=== PATIENT | male | born 1980 | race Caucasian/White ===

== ENCOUNTER 2018-05-17 14:13 | Emergency (ER) | payer OTHER ==
--- NOTE | 2018-05-17 14:47 | EDPHY ---
General Time Seen by Provider: 05/17/18 14:41 Narrative: CHIEF COMPLAINT: "Crushed my hand" HISTORY OF PRESENT ILLNESS: Patient presents with complaints of left hand and wrist pain status post crush injury. He says he was moving a couch around 10:[address] accidentally crushed his left hand between a dumpster in the couch. This was there for just a "couple of seconds." He was able to pull his hand out. He has significant pain in the hand rated at 10/10. Radiates into the forearm. No numbness, tingling or weakness. No injury elsewhere. No laceration or puncture. Unable to bear weight left upper extremity due to the pain. Right- hand dominant. This is reportedly a work related injury. DOMINANT EXTREMITY: Right-hand dominant ESTABLISHED ORTHOPEDIST: None REVIEW OF SYSTEMS: Ten systems reviewed and are negative unless otherwise noted in the HPI PAST MEDICAL HISTORY: Arthritis, right hand fracture PAST SURGICAL HISTORY: Cyst excision SOCIAL HISTORY: Daily smoker. Lives and works here locally. FAMILY HISTORY: Noncontributory EXAMINATION General Appearance: Alert, no distress. Pacing in the room. Cardiovascular: Symmetric radial pulses 2+. There is brisk cap refill in the fingers left hand. Good signs of perfusion left hand. Neurological: A&O, sensory symmetric, interossei strength symmetric Skin: Grossly intact. Warm and dry. Multiple tattoos. There is no puncture laceration about the left hand. Extremities: Minimal edema to the left hand. Tenderness to palpation of the left hand involving the metacarpals, proximal phalanges of all fingers, and carpals excluding the anatomic snuffbox. Range of motion is difficult to test due to pain. He does retain strength of the interossei. All compartments of left upper extremity are soft and without edema or any signs of compartment syndrome. Psychiatric: Mood and affect normal DIFFERENTIAL DIAGNOSES: Including but not limited to sprain, strain, crush injury, fracture, dislocation MDM: 2:40 p.m. Crush injury to left hand and wrist earlier this morning, 4 hr ago. He is neuro intact distally with good signs of perfusion of the fingers. X-ray of the hand is pending. 2:50 p.m. X-ray as read by me, the radiologist, reveals no acute findings. I have ordered Percocet pain medication for patient. I will place him in a Velcro thumb spica. 3:00 p.m. X-ray has been read as negative by radiologist for acute findings. We discussed Velcro thumb spica, ice, elevation ibuprofen. Short course of pain medication. A disc we provided as he will need to follow up with his worker's compensation [facility] and potentially hand surgeon if his pain is not improved. We discussed the possibility of scaphoid injury, thus the splint. He will be discharged home stable condition. SUPERVISION: This patient was independently evaluated without direct involvement of or examination by the attending physician. ED Precautions: Worsening pain. Erythema, edema, cyanosis, pallor, paresthesia or anesthesia. - Diagnostics Imaging Results: Imaging Impressions Hand X-Ray 05/17/18 14:23 Impression: Nothing acute identified. - History Smoking Status: Current every day smoker - Objective Vital Signs: Initial Vital Signs Temperature (C) 97.9 F 05/17/18 14:19 Heart Rate 80 05/17/18 14:19 Respiratory Rate 16 05/17/18 14:19 Blood Pressure 117/69 05/17/18 14:19 O2 Sat (%) 97 05/17/18 14:19 O2 Delivery Mode Room Air Allergies/Adverse Reactions: aspirin Allergy (Verified 05/17/18 14:21) Home Medications: Medication Instructions Recorded oxyCODONE HCL/ACETAMINOPHEN 1 each PO Q4-6PRN PRN #7 tablet 05/17/18 [Percocet 5-325 mg Tablet] Medications Given: Discontinued Medications Oxycodone/Acetaminophen (Percocet 5/325) 2 tab PO EDNOW ONE Stop: 05/17/18 14:49 Last Admin: 05/17/18 14:51 Dose: 2 tab Departure - Departure Disposition: Home, Routine, Self-Care Clinical Impression: Crushing injury of left hand and finger Qualifiers: Encounter type: initial encounter Qualified Code(s): S67.22XA - Crushing injury of left hand, initial encounter Condition: Good Instructions: Crush Injury (ED) Additional Instructions: 1. Ice and elevation often 2. Ibuprofen 600 mg every 6-8 hours as needed for pain 3. Pain medication as prescribed as needed 4. Follow up with hand surgeon for definitive care 5. ED precautions for worsening pain, numbness, tingling, increasing swelling or pressure Referrals: Royer Saez MD [Medical Doctor] - As per Instructions Stand Alone Forms: Work Comp Follow Up Prescriptions: oxyCODONE HCL/ACETAMINOPHEN [Percocet 5-325 mg Tablet] 1 each PO Q4-6PRN PRN #7 tablet PRN Reason: Pain, Breakthrough
[2018-05-17] MEDS ORDERED: OXYCODONE/APAP 5/325 TAB PO ONE (14:48)
[2018-05-17 15:07] VITALS: BP 112/64
== END 2018-05-17 15:07 | disposition home or self-care (01) ==
DX: S67.22XA Crushing injury of left hand, initial encounter (principal); F17.200 Nicotine dependence, unspecified, uncomplicated; W23.1XXA Caught, crushed, jammed, or pinched between stationary objects, initial encounter; Y92.9 Unspecified place or not applicable; Y99.9 Unspecified external cause status; Y93.89 Activity, other specified